=== PATIENT | male | born 1985 | race Caucasian/White ===

== ENCOUNTER 2020-03-26 08:49 | Inpatient (IN) ==
--- NOTE | 2020-03-13 11:32 | PAT Medication Instructions ---
Medication Instructions Date of Service March 13, 2020 Home Medications escitalopram oxalate 20 mg PO QAM oxycodone-acetaminophen 1 tab PO Q6H PRN Medical Marijuana 1 dose INHALATION UD PRN DO NOT take the morning of surgery Medical Marijuana 1 dose INHALATION UD PRN Take morning of surgery With a small sip of water, OTHERWISE NOTHING TO EAT OR DRINK AFTER MIDNIGHT: escitalopram oxalate 20 mg PO QAM oxycodone-acetaminophen 1 tab PO Q6H PRN (okay to take up to 4 hours prior to surgery if needed) Take evening before surgery oxycodone-acetaminophen 1 tab PO Q6H PRN (if needed) Medical Marijuana 1 dose INHALATION UD PRN (if needed) Other Notes If you have any questions please call us at [phone] or [phone] or [phone] or [phone]
--- NOTE | 2020-03-13 12:30 | Anesthesiology Consultation ---
Date of Service March 13, 2020 Assessment & Plan (1) Encounter for pre-operative examination: Chart Review Chart Review: Acceptable Risk for Surgery (pending preop Covid testing ) and Patient seen in Pre Admission Testing Per PAT appt on 03/13/20, pt resides in [facility]. Denies any recent travel. No known Covid positive contacts or Covid related symptoms. Pt's son attends [employer]- randomly tested for Covid- has always tested negative. Pt scheduled for preop Covid testing 03/19/20= awaiting results. Educated on importance of self quarantining, social distancing and wearing mask in public both for the patient and household contacts. Teaching & Discussion Pre-Anesthesia Teaching/Discussion Notes: Instructed NPO after midnight before surgery,except medications with 15 cc of water. Medication instructions provided according to the [facility] guidelines. History Surgery Operation Date: 03/26/20 09:05 Proposed Procedures p L5-S1 Decompression Fusion, L4-L5 Hardware Removal, Spinal Cord Monitoring - Rodo Saravia, Height/Weight Height: 6 ft 5 in Weight: 144.5 kg Allergies Allergy/AdvReac Type Severity Reaction Status Date / Time No Known Allergies Allergy NONE Verified 03/12/20 14:57 Medications Home Medications Medication Instructions Recorded Confirmed Last Taken escitalopram oxalate 20 mg PO QAM 02/27/20 03/12/20 02/27/20 02:00 oxycodone-acetaminophen 1 tab PO Q6H PRN 02/27/20 03/12/20 02/27/20 02:00 2 tabs Medical Marijuana 1 dose INHALATION UD PRN 03/12/20 03/12/20 Unknown Past Medical History Medical History Anxiety and depression Degenerative disc disease History of asthma A CHILD Lumbar herniated disc Temporomandibular joint disorder Locks usually in the morning- clicking throughout the day- left side only Exercise / Class Metabolic Activity III < 4 Walking/Shop/Light housework (one flight of stairs - SOB if back pain severe, no chest pain ) Past Family History Family History Mother Family history of diabetes mellitus Grandmother (Maternal) Family history of diabetes mellitus Other No family history of adverse response to anesthesia Past Surgical History Surgical History Fusion of spine LUMBAR H/O sinus surgery History of arthroscopy RT KNEE History of discectomy LUMBAR History of testicular surgery AGE AGE 1 Past Anesthesia History No Hx of Anesthesia Complications and No Family Hx of Anesthesia Complications History of PONV No Hx of PONV and Hx of Motion Sickness (on boats ) Social History Smoking Status: Never smoker Do You Dip or Chew Tobacco: No Hx Alcohol Use: No Hx Substance Use: Yes substance use type: does not use Last Used Substance Other:: ONLY USES MEDICAL MARIJUANA Review of Systems Patient denies chest pain, shortness of breath at rest, reflux, cough, wheezing, palpitations. No hx of seizures, stroke, AK, apnea/snoring. No hx of blood clots or blood transfusions Physical Exam Vital Signs VITALS BP 157/98 P 86 TEMP 98.6 SP02 94% RESP 16 Constitutional no acute distress ENMT Mouth: no TMJ clicking Thyromental Distance: > or= 3.5 Finger Breadths (4.0) Mallampati Class: II (smaller airway ) Denies loose or missing teeth Pt educated to shave geronimo Neck + thick neck; neck extension not limited Respiratory normal respiratory effort; no respiratory distress Auscultation: lungs clear to auscultation bilaterally; no wheezes Cardiovascular Rate/Rhythm: regular rate and regular rhythm Heart Sounds: no murmur Vessels: no carotid bruit Musculoskeletal Spine: no pain with cervical ROM Extremities: extremities normal to inspection Pt with increased back pain- difficult to sit- pt was mostly standing and laying during appt with exception to exam Psychiatric Orientation: alert Testing Laboratory Results 03/13/20 12:50 03/13/20 12:50 PT 10.4 Seconds (9.0-12.0) 03/13/20 12:50 INR 1.0 (0.9-1.1) 03/13/20 12:50 APTT 25.0 Seconds (21.0-31.0) 03/13/20 12:50 Urine Color Dark Yellow 03/13/20 12:50 Urine Appearance Clear (Clear) 03/13/20 12:50 Urine pH 6.5 (4.5-7.5) 03/13/20 12:50 Ur Specific Bliss 1.029 (1.000-1.030) 03/13/20 12:50 Urine Protein Negative (Negative) 03/13/20 12:50 Urine Glucose (UA) Negative (Negative) 03/13/20 12:50 Urine Ketones Negative (Negative) 03/13/20 12:50 Urine Nitrite Negative (Negative) 03/13/20 12:50 Ur Leukocyte Esterase Negative (Negative) 03/13/20 12:50 Blood Type A Negative 03/13/20 12:50 Antibody Screen NEGATIVE 03/13/20 12:50 Electrocardiogram Date: 03/13/20 Findings: + NSR @ (75) Normal EKG. Chest X-Ray Date: 03/13/20 Findings: + NAD
[2020-03-13 13:12] LABS: Basophils # (auto) 0.02 K/uL (0-0.2); Basophils % (auto) 0.3 %; Eosinophils # (auto) 0.03 K/uL (0-0.5); Eosinophils % (auto) 0.4 %; Hematocrit (blood only) 43.3 % (42-52); Hemoglobin 14.8 g/dL (14.0-18.0); Immature Granulocytes # (auto) 0.01 K/uL (0.00-0.02); Immature Granulocytes % (auto) 0.1 %; Lymphocytes # (auto) 2.05 K/uL (1.2-3.4); Lymphocytes % (auto) 29.8 %; Mean Corpuscular Hgb Conc 34.2 g/dL (32-36); Mean Corpuscular Volume 84.9 fL (80-100); Mean Platelet Volume 9.8 fL (7.4-10.4); Monocytes # (auto) 0.47 K/uL (0.11-0.59); Monocytes % (auto) 6.8 %; Neutrophils % (auto) 62.6 %; Platelet Count 239 K/uL (130-400); RDW Coefficient of Variation 12.5 % (11.5-14.5); RDW Standard Deviation 39.1 fL (36.4-46.3); White Blood Count 6.88 K/uL (4.8-10.8)
[2020-03-13 13:22] LABS: Appearance Urine Clear (Clear); Bilirubin Urine Negative (Negative); Blood Urine Negative (Negative); Color Urine Dark Yellow; Glucose Urine UA Negative (Negative); Ketones Urine Negative (Negative); Leukocyte Esterase Urine Negative (Negative); Nitrite Urine Negative (Negative); Protein Urine Negative (Negative); Specific Gravity Urine 1.029 (1.000-1.030); Urobilinogen Urine Negative (Negative); pH Urine 6.5 (4.5-7.5)
[2020-03-13 13:24] LABS: Partial Thromboplastin Ratio 0.9; Prothrombin Time 10.4 Seconds (9.0-12.0)
--- NOTE | 2020-03-13 13:45 | XRay Report ---
XR chest Pre-admission PA/Lat HISTORY: Preop. COMPARISON: None. FINDINGS: The lungs are clear. Cardiac silhouette is normal in size. No pleural effusions. No pneumot horax. IMPRESSION: No acute process. ACT 112: Negative or not required by law. Electronically signed by: Rhett Chaidez M.D. 03/13/2020 1:44 PM
[2020-03-13 14:10] LABS: Calcium 9.8 mg/dl (8.5-10.1); Est GFR (African American) 107.8; Potassium 4.2 mmol/L (3.5-5.1)
--- NOTE | 2020-03-13 18:04 | Electrocardiogram Report ---
Test Reason : Blood Pressure : / mmHG Vent. Rate : 075 BPM Atrial Rate : 075 BPM P-R Int : 160 ms QRS Dur : 100 ms QT Int : 384 ms P-R-T Axes : 060 068 033 degrees QTc Int : 428 ms Normal sinus rhythm Normal ECG No previous ECGs available Confirmed by Jackson Mejía ([id number]) on 03/13/2020 6:04:40 PM Referred By: Rodo Saravia Confirmed By:Erik Mejía
[~2020-03-26 08:49] MED LIST: ACETAMINOPHEN 500 MG TAB PO SCH; CeleBREX 200 MG CAP PO SCH; GABAPENTIN 900 MG DOSE PO SCH; LR 15ML/HR IV SCH
[2020-03-26] MEDS ORDERED: fentaNYL citrate 100 MCG/2 ML VIAL ONE ×2 (09:28→11:38)
[2020-03-26] MEDS ORDERED: MIDAZOLAM HCL 1 MG/ML 2ML VIAL ONE (09:29)
[2020-03-26] MEDS ORDERED: KETAMINE 50 MG/5 ML SYRINGE ONE (09:29)
[2020-03-26] MEDS ORDERED: HYDROmorphone INJ 2 MG/ML SYR/VIAL ONE (09:29)
--- NOTE | 2020-03-26 09:31 | History & Physical Bridge Note ---
Date of Service March 26, 2020 History & Physical Bridge Note I have examined the patient, reviewed the History & Physical and in the interval since the performance of the History & Physical I have noted the following changes of clinical significance: no changes noted
--- NOTE | 2020-03-26 09:33 | History & Physical Report ---
Date of Service March 26, 2020 Assessment & Plan (1) Lumbar disc herniation with radiculopathy: Admission and Anticipated Discharge Date Admission Date: At this time the patient has severe neural compression with progressive neurologic deficits that risks of being irreversible. Subsequently we are recommending urgent lumbar decompression fusion. This will require at L5-S1 decompression fusion, L4-5 hardware removal. History of Present Illness Chief Complaint: Back and leg pain Primary Care Provider: Alexi Parker DO This is a 34-year-old male that presents with severe back and bilateral leg pain after failing course of nonoperative care is here for surgical invention. Allergies Allergy/AdvReac Type Severity Reaction Status Date / Time No Known Allergies Allergy NONE Verified 03/26/20 09:15 Home Medications Medication Instructions Recorded Confirmed Type escitalopram oxalate 20 mg PO QAM 02/27/20 03/26/20 History oxycodone-acetaminophen 1 tab PO Q6H PRN 02/27/20 03/26/20 History Medical Marijuana 1 dose INHALATION UD PRN 03/12/20 03/26/20 History Past Med/Surg History Medical History Anxiety and depression Degenerative disc disease History of asthma A CHILD Lumbar herniated disc Temporomandibular joint disorder Locks usually in the morning- clicking throughout the day- left side only Surgical History Fusion of spine LUMBAR H/O sinus surgery History of arthroscopy RT KNEE History of discectomy LUMBAR History of testicular surgery AGE AGE 1 Family History Mother Family history of diabetes mellitus Grandmother (Maternal) Family history of diabetes mellitus Other No family history of adverse response to anesthesia Social History Smoking Status: Never smoker Second Hand Exposure: No; Do You Dip or Chew Tobacco: No; Tobacco Cessation Education Requested by Patient: No Hx Alcohol Use: No Hx Substance Use: Yes Last Used Substance Other:: ONLY USES MEDICAL MARIJUANA Preferred Language: [place] Secretary Of State Required: No Beliefs That Will Affect Care: None Current Living Situation: Family Feels Safe at Home: Yes Safety Concerns: Feels Safe At This Time Assistive Devices: None Physical Exam Physical Exam: Patient is alert and oriented He exhibits severe tension signs bilaterally with weakness with right extensor hallucis longus compared to the left. This extends into plantarflexion as well. Heart regular rhythm Lungs clear to auscultation Results & Data ([facility]) Vital Signs (Past 12 Hours) Vital Signs Temp Pulse Resp BP Pulse Ox 03/26/20 09:18 36.8 C 97 H 16 153/89 H 96
[2020-03-26] MEDS ORDERED: BACITRACIN INJ 50,000 UNIT VIAL ONE (09:38)
[2020-03-26] MEDS ORDERED: BUPIVACAINE/EPINEPHRINE 0.5% MPF 1:200,000 30 ML VIAL ONE (09:38)
[2020-03-26] MEDS ORDERED: ONDANSETRON INJ 2 MG/ML 2 ML VIAL IV PRN ×2 (09:45→13:43)
[2020-03-26] MEDS ORDERED: ATROPINE SULFATE 0.1 MG/ML 10ML SYR IV PRN (09:45)
[2020-03-26] MEDS ORDERED: LABETALOL HCL IV 5 MG/ML 20ML IV PRN (09:45)
[2020-03-26] MEDS ORDERED: DEXAMETHASONE SOD INJ 4 MG/ML VIAL ONE (10:48)
[2020-03-26] MEDS ORDERED: ONDANSETRON INJ 2 MG/ML 2 ML VIAL ONE (10:48)
[2020-03-26] MEDS ORDERED: GLYCOPYRROLATE 0.2 MG/ML VIAL ONE (10:48)
[2020-03-26] MEDS ORDERED: ROCURONIUM BROMIDE 10 MG/ML 5 ML VIAL IV ONE ×2 (10:48→11:40)
[2020-03-26] MEDS ORDERED: LIDOCAINE HCL 2% 2 ML VIAL/AMP(20MG/ML) INFIL ONE (10:48)
[2020-03-26] MEDS ORDERED: NEOSTIGMINE METHYLSULFATE 1 MG/ML 10ML VIAL ONE (10:48)
[2020-03-26] MEDS ORDERED: LARYING-O-JET KIT (LTA) ONE (10:48)
[2020-03-26] MEDS ORDERED: PROPOFOL IV EMULSION 10 MG/ML 20 ML VIAL IV ONE (10:48)
[2020-03-26] MEDS ORDERED: FLOSEAL HEMOSTATIC MATRIX 10ML TOP ONE (11:49)
--- NOTE | 2020-03-26 11:59 | Operative Report ---
Post Operative Report Pre & Post Diagnosis Operation Date: 03/26/20 10:50 Pre-Op Diagnosis: Lumbar disc herniation with radiculopathy Post-Op Diagnosis: Lumbar disc herniation with radiculopathy I identified the patient and participated in the time-out.: Yes Procedure Operation Date: 03/26/20 10:50 Actual Procedures #1 removal of posterior instrumentation L4-5. #2 exploration of fusion L4-5 per #3 lumbar decompression with bilateral medial facetectomies and foraminotomies L5-S1. #4 posterior spinal fusion L5-S1. #5 placement of posterior instru mentation L5-S1. #6 interbody fusion L5-S1. #7 placement peek cage 13 x 26 mm at L5-S1. #8 placement of locally harvested morselized autograft in the posterior lateral gutters. #9 placement infuse collagen sponge, master graft in the posterior lateral gutters and ostial amp interbody space. Surgeon Rodo Saravia, DO Senior Linux Systems Administrator Keyla Shell Estimated Blood Loss 550 Findings See Below Patient is 6 foot 5 inches tall weighing over 143 kg with a BMI in excess of 37. This combined with an EBL greater than 500 cc created significant technical difficulty requiring her deepest retractors longus instruments in order to perform this procedure. This had at least 50% increase to the operative time. Specimens None Indications This is a 34-year-old male with above-mentioned diagnosis having evidence of progressive neurologic deficit and pain we elected undergo urgent decompression fusion. Description of Procedure Patient was met with identified informed consent obtained. Patient was then taken to the operative suite underwent an patient placed in the prone position the Daniel table atop the Donnell frame. All bony prominences well-padded eyes inspected to ensure no external pressure placed upon the. This point the lumbar spine was prepped and draped in a sterile fashion. Sharp dissection with the assistance of Bovie cautery was performed down to and exposing the lamina and transverse processes as well as instrumentation at L4-L5 and sacral ala bilaterally. I then proceeded to move the hardware at L4-5 bilaterally explore the fusion mass noting it to be mature and intact. Then performed a complete laminectomy of L5 including bilateral medial facetectomies and foraminotomies a ddressing severe spinal stenosis. Pedicle screws were then placed in L5 and S1 levels bilaterally with assistance of fluoroscopy and the proper sized vidal placed. By way of a transforaminal portion right complete discectomy was performed endplates curetted to subcortically bone and a 13 x 26 mm peek cage filled osteobone graft tapped in position. The rods were then locked in final position bilaterally. The transverse processes of L5 and sacral ala burred to subcortical bleeding bone. Infuse collagen sponge mass graft local autograft was placed in the posterior gutters. 15 round CHLOE drain inserted. The incision was then closed with 1 Vicryl fascia 2-0 Vicryl subcutaneously and 4 Monocryl for final skin closure. Steri-Strip sterile dressings placed. Patient waken taken PACU stable condition. Please note spinal cord monitoring was utilized at the procedure no changes noted. Lastly Keyla Shell was present at the entire surgery by the patient positioning complex portions of the surgery and final skin closure. I attest to the content of the Intraoperative Record and any orders documented therein. Any exceptions are noted below.
[2020-03-26] MEDS: HYDROmorphone INJ 1 MG/ML SYRINGE IV PRN ×4 (12:27→12:42)
--- NOTE | 2020-03-26 12:36 | Fluoroscopy Report ---
FL lumbar spine 2-3V CLINICAL HISTORY: L5-S1 DECOMPRESSION AND FUSION L4-L5 HW REMOVAL COMPARISON STUDY: None. FLUOROSCOPY TIME: 18 seconds. FINDINGS: 2 fluoroscopic spot images of the lower lumbar spine. L5-S1 decompression and fusion with p edicle screws and rods. The hardware appears intact. IMPRESSION: Fluoroscopy provided for L5-S1 decompression and fusion. ACT 112: Negative or not required by law. Electronically signed by: Rhett Chaidez M.D. 03/26/2020 12:35 PM
[2020-03-26] MEDS ORDERED: LORazepam 0.5 MG TAB PO PRN (13:43)
[2020-03-26] MEDS ORDERED: LORazepam 0.5 MG/1 ML VIAL IV PRN (13:43)
[2020-03-26] MEDS ORDERED: PROMETHAZINE HCL 12.5 MG in SODIUM CHLORIDE 0.9% 50 ML IV PRN (13:43)
[2020-03-26] MEDS ORDERED: ALUMINUM/MAGNESIUM SUSP 30 ML UDC PO PRN (13:43)
[2020-03-26] MEDS ORDERED: DO NOT ADMINISTER FLU VACCINE PRN (13:43)
[2020-03-26] MEDS ORDERED: ONDANSETRON 4 MG OD TAB PO PRN (13:43)
[2020-03-26] MEDS ORDERED: diphenhydrAMINE Capsule 25 MG CAP PO PRN (13:43)
[2020-03-26] MEDS ORDERED: HYDROmorphone INJ 0.5 MG/0.5 ML SYR IV PRN (13:43)
[2020-03-26] MEDS ORDERED: ACETAMINOPHEN 1,000 MG/100 ML VIAL IV PRN (13:43)
[2020-03-26] MEDS ORDERED: HYDROmorphone INJ 1 MG/ML SYRINGE IV PRN (13:43)
[2020-03-26] MEDS ORDERED: DO NOT ADMINISTER PNEUMOCOCCAL VACCINE PRN (13:43)
[2020-03-26] MEDS ORDERED: FAMOTIDINE 20 MG TAB PO PRN (13:43)
[2020-03-26] MEDS ORDERED: MAGNESIUM HYDROXIDE SUSP 30 ML UDC PO PRN (13:43)
[2020-03-26] MEDS ORDERED: ACETAMINOPHEN 500 MG TAB PO PRN (13:43)
[2020-03-26] MEDS ORDERED: NALOXONE HCL 0.4 MG/1 ML VIAL/CARP IV PRN (13:43)
[2020-03-26] MEDS ORDERED: traMADol HCL 50 MG TABLET PO PRN (13:43)
[2020-03-26] MEDS ORDERED: SOD PHOSPHATE/SOD BIPHOSPHATE ENEMA 132 ML BTL PR PRN (13:43)
[2020-03-26] MEDS ORDERED: METOCLOPRAMIDE HCL INJ 5 MG/ML 2 ML VIAL IV PRN (13:43)
[2020-03-26] MEDS ORDERED: bisacodyL 10 MG SUPP PR PRN (13:43)
[2020-03-26] MEDS ORDERED: hydrOXYzine HCl 25 MG TAB PO PRN (13:43)
--- NOTE | 2020-03-26 13:49 | Anesthesiology Progress Note ---
Date of Service March 26, 2020 Anesthesia Post Procedure Vital Signs Vital Signs: Temp Pulse Pulse Resp BP Pulse Ox 03/26/20 13:15 98 H 14 142/86 H 99 03/26/20 13:00 37.2 C 89 13 147/85 H 99 03/26/20 12:50 99 H 15 171/92 H 99 03/26/20 12:40 92 H 14 145/86 H 99 03/26/20 12:30 88 16 164/96 H 99 03/26/20 12:21 36.6 C 112 H 15 185/99 H 100 03/26/20 09:18 36.8 C 97 H 16 153/89 H 96 Pain Intensity Lower Back: Pain Intensity: 8 Transfer of Care Handoff Completed per policy Notes Mental Status: alert / awake / arousable Patient Amnestic to Procedure: Yes Nausea / Vomiting: adequately controlled Pain: adequately controlled Airway Patency, RR, SpO2: stable & adequate BP & HR: stable & adequate Hydration State: stable & adequate Anesthetic Complications: no major complications apparent
[2020-03-26] MEDS ORDERED: MEDICAL MARIJUANA INH PRN (14:27)
[2020-03-26] MEDS: LACTATED RINGER'S 1,000 ML IV SCH ×2 (14:28→20:14)
[2020-03-26] MEDS: KETOROLAC 30 MG/ML VIAL IV SCH ×2 (14:34→19:49)
[2020-03-26] MEDS: oxyCODONE HCL IR 5 MG TAB (IMMEDIATE RELEASE) PO PRN ×2 (16:32→21:35)
[2020-03-26] MEDS: ceFAZolin 2000MG 2,000 MG/15 ML SYR IV SCH (17:54)
[2020-03-26] MEDS: DOCUSATE SODIUM/SENNA 50/8.6MG TAB PO SCH (19:49)
[2020-03-27] MEDS: KETOROLAC 30 MG/ML VIAL IV SCH ×2 (02:01→08:13)
[2020-03-27] MEDS: ceFAZolin 2000MG 2,000 MG/15 ML SYR IV SCH (02:01)
[2020-03-27] MEDS: LACTATED RINGER'S 1,000 ML IV SCH (03:03)
[2020-03-27] MEDS: POLYETHYLENE (MIRALAX) 17 GM PACK PO SCH ×4 (05:51→22:29)
[2020-03-27 08:12] LABS: Hematocrit (blood only) 34.3 % (42-52); Hemoglobin 11.8 g/dL (14.0-18.0); Immature Granulocytes # (auto) 0.02 K/uL (0.00-0.02); Immature Granulocytes % (auto) 0.2 %; Lymphocytes # (auto) 1.18 K/uL (1.2-3.4); Lymphocytes % (auto) 9.5 %; Mean Corpuscular Hemoglobin 28.8 pg (25-34); Mean Corpuscular Hgb Conc 34.4 g/dL (32-36); Mean Corpuscular Volume 83.7 fL (80-100); Mean Platelet Volume 9.7 fL (7.4-10.4); Monocytes # (auto) 1.09 K/uL (0.11-0.59); Monocytes % (auto) 8.8 %; Neutrophils # (auto) 10.09 K/uL (1.4-6.5); Neutrophils % (auto) 81.5 %; Platelet Count 294 K/uL (130-400); RDW Coefficient of Variation 12.6 % (11.5-14.5); RDW Standard Deviation 38.3 fL (36.4-46.3); White Blood Count 12.38 K/uL (4.8-10.8)
[2020-03-27] MEDS: oxyCODONE HCL IR 5 MG TAB (IMMEDIATE RELEASE) PO PRN ×4 (08:19→23:09)
[2020-03-27] MEDS: ESCITALOPRAM OXALATE 20 MG TAB PO SCH (08:19)
[2020-03-27 08:43] LABS: BUN Creatinine Ratio 13.9 (10-20); Calcium 9.5 mg/dl (8.5-10.1); Creatinine Clr Calc Pharmacy 210.9 ml/min; Est GFR (Non-African American) 117.4
--- NOTE | 2020-03-27 09:41 | Orthopedic Progress Note ---
Date of Service March 27, 2020 Assessment & Plan (1) Lumbar disc herniation with radiculopathy: Admission and Anticipated Discharge Date Admission Date: March 26, 2020 At this time initiate physical therapy monitor his CHLOE operatively discharge home this weekend. Subjective Patient's back pain is controlled leg symptoms markedly improved. Physical Exam 2 Physical Exam: Patient is improved strength testing appears comfortable. Results & Data ([facility]) Vital Signs (Past 12 Hours) Vital Signs Temp Pulse Resp BP Pulse Ox 03/27/20 07:25 36.7 C 97 H 20 133/81 96 03/27/20 03:13 36.6 C 91 H 18 124/76 95 03/26/20 23:55 36.8 C 90 18 129/82 94
[2020-03-27] MEDS: DOCUSATE SODIUM/SENNA 50/8.6MG TAB PO SCH (20:03)
[2020-03-28] MEDS: oxyCODONE HCL IR 5 MG TAB (IMMEDIATE RELEASE) PO PRN ×2 (05:29→09:53)
[2020-03-28] MEDS: POLYETHYLENE (MIRALAX) 17 GM PACK PO SCH (05:29)
[2020-03-28] MEDS: ESCITALOPRAM OXALATE 20 MG TAB PO SCH (08:21)
[2020-03-28] MEDS ORDERED: dexAMETHasone 8 MG in SYRINGE 0 ML IV SCH (09:00)
--- NOTE | 2020-03-28 10:07 | Discharge Summary ---
Date of Service March 28, 2020 Admission HPI Per Admitting Provider This is a 34-year-old male that presents with severe back and bilateral leg pain after failing course of nonoperative care is here for surgical invention. Principal Diagnosis Lumbar disc herniation Discharge Data Allergies Allergy/AdvReac Type Severity Reaction Status Date / Time No Known Allergies Allergy NONE Verified 03/26/20 09:15 Consultations 03/26/20 13:43 Consult Case Management - Discharge Planning Routine Procedures Performed Operation Date: 03/26/20 10:50 Actual Procedures p L5-S1 Decompression Fusion, , Spinal Cord Monitoring(Not Applicable) - Rodo Saravia DO s L4-L5 Hardware Removal(Not Applicable) - Rodo Saravia DO Ordered Studies 03/26/20 10:00 FL fluoroscopy <1hr Routine FL lumbar spine 2-3V Routine Hospital Course (1) Lumbar disc herniation with radiculopathy: Patient with lumbar decompression fusion tolerated this well second orthopedic for postoperative. Postop day 1 is up and ambulating progressed to postop day #2. Back pain controlled CHLOE drain decreasing probably. Excellent strength testing. Socially discharged home. Discharge orders instructions from the chart for further review. Total Time Total Time Spent Total Time Spent (In Minutes): 20 minutes Discharge Plan Discharge Items Patient Disposition: Home - Self-Care Reason For Visit: Disc Disorders with Radiculopathy, Lumbar Region Discharge Diagnosis: Lumbar disc herniation with radiculopathy Activity: As commented below Non-emergency contact: Primary Care Provider Call non-emergency contact if: you have any medication questions Follow-up/Referrals: Alexi Parker DO [Primary Care Provider] - Diet: Regular Addtl Attending Provider Instructions: ACTIVITY RECOMMENDATIONS: SELF CARE INSTRUCTIONS AFTER THORACIC/LUMBAR FUSIONS 1. You may walk to your tolerance. It is good exercise for your legs and back. Expect some back and intermittent leg aches and pains. 2. You may perform "counter-top" level activities (make a sandwich, jeanette with a project, etc.). 3. No bending or lifting of more than 10 pounds or back twisting of any nature (roll like a log when turning in bed). 4. You may ride in a car for 20-30 minutes at a time. No driving until after your first visit with your doctor. 5. Frequent changes of position and restricting sitting to 30 minutes at a time will help limit the amount of back spasms and stiffness you may experience. 6. You may discontinue the use of ambulatory aids (cane, crutches, etc.) once your strength and confidence allow. 7. You may supervisor lace tearing the shower and let water strike your incision when you arrive home at least once daily. Do not take a tub bath, sit in a hot tub or go into a swimming pool until after your first recheck in the office. SPECIAL CARE INSTRUCTIONS: VERY IMPORTANT TO READ AND REVIEW A. Your surgical incision has been closed with a cosmetic suture under the skin that will dissolve in about 6 weeks. In 14 days, you can use a pair of clean scissors and cut the suture that is left outside of the skin at the ends of your incision. 1. The small skin tapes can be removed 7 days after surgery if they have not fallen off by that point. 2. You may keep the wound open to air as much as possible to promote healing after post-op day number 5 unless told otherwise by your doctor. 3. If you think the wound looks like it is becoming infected (redness or worsening drainage) and/or you are experiencing fever, chill or worsening back pain and muscle spasms, contact the office so that we may evaluate you as soon as possible. B. Complications are uncommon, but please contact us if you have any signs or symptoms of: 1. wound infection (fever higher than 102.5 degrees F, redness, separation of wound, drainage, or increasing pain from the incision) 2. blood clots in legs (pain, swelling, redness and warmth in legs) 3. urinary tract infection (fever higher than 102.5 degrees F, burning upon urination or increased frequency of urination) 4. nerve problems (inability to walk on your toes or heels, numbness, loss of bowel or bladder control) 5. any other symptoms that concern you C. Please call the office at if you have any concerns or questions about your operation or recovery. D. No smoking! Smoking drastically decreases the chance of a solid fusion. E. Do not take any anti-inflammatory medications (Indocin, Advil, Motrin, Aspirin, Naprosyn, etc.) as these may inhibit the chance of a solid fusion. Tylenol is okay to take for pain. MANAGING PAIN AFTER SPINAL SURGERY 1. Narcotic medication is intended for short-term use and will be provided for surgical pain. Surgical pain usually lasts for a period of 4-6 weeks. Narcotic medication includes Percocet, Vicodin, Darvocet, Tylenol #3 or Lortab. 2. Longer-term pain is more appropriately treated with non-narcotic medication such as Tylenol ES. 3. Muscle spasm is not appropriately treated with narcotics. Muscle relaxers such as Soma, Flexeril or Skelaxin can be used along with Tylenol ES. 4. Remember that we all live with some "aches and pains". This is not unusual or uncommon after an injury or as we get older. a. Back pain is expected and may include muscle spasms for 4 to 6 weeks after surgery. The pain should gradually improve. If the pain worsens for no apparent reason, please contact the office. b. Intermittent leg pain may also be experienced and should not be concerned about unless it worsens for no apparent reason. If so, please contact the office. 5. We will provide appropriate medication within the normal guidelines of their prescribed use. We will also be very cautious and aware of potential abuse and extended duration of patients' medication needs. a. Pain medications are for your comfort and to assist with sleep and rest so that the tissue can heal. They are not provided in order to return to normal activity and should not be used through the day. To do so or worsening pain at night can result from ongoing tissue damage and development of tolerance to the prescribed medicine. 6. Please allow 2-3 days to process refills. Prescriptions will not be mailed but must be picked up at the office. FOLLOW UP VISIT: Keep your scheduled follow-up appointment. Any questions, please call the office at . Pending Studies at Discharge: No Stand-Alone Forms: My [employer], Smoking Cessation Medications and DC Order Prescriptions: New tramadol 50 mg tablet 50 mg PO Q6H PRN (Reason: pain, moderate) Qty: 30 RF: 0 oxycodone 5 mg tablet 5 mg PO Q6H PRN (Reason: pain, severe) Qty: 30 RF: 0 Continued oxycodone-acetaminophen 5-325 mg tablet 1 tab PO Q6H PRN (Reason: Pain) RF: 0 escitalopram oxalate 20 mg tablet 20 mg PO QAM RF: 0 Medical Marijuana 1 dose inhalation UD PRN (Reason: PAIN/ANXIETY) RF: 0 Discharge Orders: Discharge Order (Routine); Ordered 03/28/20 Ordered By: Rodo Saravia Admission Data Admit Date/Time: 03/26/20 12:33 Attending Provider: Rodo Saravia Admit Provider: Rodo Saravia Primary Care Provider: Alexi Parker
== END 2020-03-28 11:35 | disposition home or self-care (01) | DRG 455 ==
LOC: ASU 08:49 → 3W 12:33